=== PATIENT | male | born 1955 | race Caucasian/White ===

== ENCOUNTER → 2018-05-05 23:25 | Outpatient (CLI) | payer BC, SELFPAY | PROVIDERS: Family Provider Internal Medicine; PCP Internal Medicine; Visit Provider Internal Medicine | DX: G47.10 Hypersomnia, unspecified (principal); R06.83 Snoring; E66.9 Obesity, unspecified; I10 Essential (primary) hypertension | CPT/HCPCS: 95811 ==

== ENCOUNTER → 2018-05-05 | Outpatient (CLI) | payer BC, SELFPAY | END | disposition home or self-care (01) | LOC: SL 21:28 | PROVIDERS: Family Provider Internal Medicine; PCP Internal Medicine; Visit Provider Psychiatry & Neurology Neurology | DX: Z00.00 Encounter for general adult medical examination without abnormal findings (principal) ==

== ENCOUNTER 2019-10-18 15:00 | Outpatient (RCR) | payer BC, SELFPAY ==
--- NOTE | 2019-09-18 12:20 | HP.PTEVAL_ITS ---
Patient's Visit Information DANN ANNE is a 64 year old M referred to Physical Therapy by Anjum Mcnamara DO with a diagnosis of R TKA. Date of Evaluation: 09/12/19 Physical Therapist: Hunter Thomas DPT - Visit Plan Frequency: 3x /Week Duration: 6 Weeks Plan: Start with ROM, initiation of isometric strengthening. Progressing to functional strengthening. Initially focus on ROM and pain control. Progress as tolerated. - Subjective Findings: Pt. is here today for his initial evaluation wtih diagnosis of R TKA. DOS: 09/11/18. Pt. reports overall doing well. No N/T, no dizziness, no difficulty breathing, no calf pain. Pt. arrives with FWW, but reports that he wants to progress away from this KRISH. Pt. has been HEP compliant to date. Pt. works in [employer], where he has to stand and walk most of day. Pt. hopeful to get back to work KRISH. Pt. reports no pain with exercises, discomftor with knee flexion. Pt. is to wear bandage unit October 02. Has negative pressure bandage on. No fever noted. Pt. is hopeful to get back to all recreational and work activities without limitaitons. - Pain R knee Pain Intensity (Out of 10): 2 Pain Intensity Range: 1, 6 - Objective POSTURE: Pt. has equal wt. shift in stance. Pt. lacks TKE on RLE. PALPATION: PT. has slight tenderness around knee, no calf pain. Negative howmans sign. NEURO: Normal throughout. ROM: R knee 0-7-95deg. Tight HS and tight Hip flexors bilat. L knee 0-0-128deg. MMT: LLE 5/5 throughout. RLE- ankle 5/5; knee 4/5 throughout; hip- 4/5 throughout. GAIT: Pt. ambulates with FWW with good pattern, lacks TKE, but otherwise is doing well. STAIRS: step to pattern with BHR to complete. - Goals Goal 1:: STG: PT. to sleep throughout the night without increase in symptoms. Goal Time Frame: 2-4 Weeks Goal 2:: LTG: Pt. to be I with HEP. Goal Time Frame: 4-6 Weeks Goal 3:: STG: Pt. to have increased R knee ROM to 0-0-120deg. Goal Time Frame: 2-4 Weeks Goal 4:: LTG: Pt. to have increased strength to 4+/5 throughout RLE. Goal Time Frame: 4-6 Weeks Goal 5:: STG: Pt. to ambulate community level distances with normal pattern with LRD. Goal Time Frame: 2-4 Weeks Goal 6:: LTG: Pt. to ambulate with normal pattern without AD unlimited distances. Goal Time Frame: 4-6 Weeks - Rehabilitation Potential Physical Therapy Diagnosis: Pt. has signs and symptoms consistent with R TKA. Pt. has subsequent hypombility, pain, weakness and difficulty with gait. PT. would benefit form PT to work on above limitations progressing back to all work related activities. Rehabilitation Potential: Excellent - Anticipated Interventions Patient/Client Instruction: Educate patient on: Condition, Plan of Care, Risk Factors, Benefits of Fitness Program For the Purpose of:: To improve health and function, To foster healthy habits, To improve decision making, To facilitate caregiver knowledge, To improve self management Therapeutic Exercise to Include: Strength training, Power training, Postural training, Flexibilty training, Passive ROM, Active ROM For the Purpose of:: To decrease pain, To decrease swelling/inflammation, To increase ROM, To improve nutrient delivery to tissue, To increase oxygenation perfusion, To improve muscle performance and motor function, To improve ability to perform ADL's, To improve gait and locomotor functions, To improve health of tissue, To decrease soft tissue restriction IF ES: Yes Cryotherapy (ice pack, ice massage): Yes For the Purpose of:: To decrease pain, To decrease swelling/inflammation, To increase ROM Thank you for the opportunity to evaluate your patient. For Medicare and Medicare HMO plans, please review the plan of care and approve it. It will need to be FAXED BACK to us at [phone] for Medicare purposes. For Medicare only, by signing this I certify the plan of care. Please let me know if there are questions or concerns regarding this plan of care. Physician Signature: Date:
--- NOTE | 2019-09-28 14:13 | HP.PTREVAL_ITS ---
Anjum Mcnamara, , It has been my pleasure to treat DANN ANNE over the last 7 visits for R TKA. Please see the progress note below for an update on the physical therapy plan of care! Subjective: Pt. reports he is doing well. Pt. reprots 1/10 pain with walking, no pain at rest. Pt. continues to compliant with all exercises and is increase wa lking as tolerated. Objective/Function: ROM: PROM- 0-0-122deg, AROM: 0-0-120deg. PT. had 4+/5 strength throughout BLEs. Pt. is tolerated all exercises well. Pt. is negotiating steps with reciprocal pattern without issues, use of B HR. Pt. walks without AD with good pattern, occassional antalgic motions. Pt. to see physician next week. No pain post PT this date. Plan Plan: Start with ROM, initiation of isometric strengthening. Progressing to functional strengthening. Initially focus on ROM and pain control. Progress as tolerated. Goals Goal 1:: STG: PT. to sleep throughout the night without increase in symptoms. Goal Time Frame: 2-4 Weeks Goal 2:: LTG: Pt. to be I with HEP. Goal Time Frame: 4-6 Weeks Goal 3:: STG: Pt. to have increased R knee ROM to 0-0-120deg. Goal Time Frame: 2-4 Weeks Goal 4:: LTG: Pt. to have increased strength to 4+/5 throughout RLE. Goal Time Frame: 4-6 Weeks Goal 5:: STG: Pt. to ambulate community level distances with normal pattern with LRD. Goal Time Frame: 2-4 Weeks Goal 6:: LTG: Pt. to ambulate with normal pattern without AD unlimited distances. Goal Time Frame: 4-6 Weeks Anticipated Interventions Patient/Client Instruction: Educate patient on: Condition, Plan of Care, Risk Factors, Benefits of Fitness Program For the Purpose of:: To improve health and function, To foster healthy habits, To improve decision making, To facilitate caregiver knowledge, To improve self management Therapeutic Exercise to Include: Strength training, Power training, Postural training, Flexibilty training, Passive ROM, Active ROM For the Purpose of:: To decrease pain, To decrease swelling/inflammation, To increase ROM, To improve nutrient delivery to tissue, To increase oxygenation perfusion, To improve muscle performance and motor function, To improve ability to perform ADL's, To improve gait and locomotor functions, To improve health of tissue, To decrease soft tissue restriction IF ES: Yes Cryotherapy (ice pack, ice massage): Yes For the Purpose of:: To decrease pain, To decrease swelling/inflammation, To increase ROM Please do not hesitate to contact me at [phone] by phone or if you have questions or concerns regarding this new plan of care! Sincerely, NILESH GoldmanT
--- NOTE | 2020-03-10 16:45 | HP.PT.NRP ---
DANN ANNE was seen in my office for initial evaluation on 09/12/19. The following Plan of Care was established for this patient: Initial Frequency: 3x /Week Initial Duration: 6 Weeks Patient/Client Instruction: Educate patient on: Condition, Plan of Care, Risk Factors, Benefits of Fitness Program For the Purpose of:: To improve health and function, To foster healthy habits, To improve decision making, To facilitate caregiver knowledge, To improve self management Therapeutic Exercise to Include: Strength training, Power training, Postural training, Flexibilty training, Passive ROM, Active ROM For the Purpose of:: To decrease pain, To decrease swelling/inflammation, To increase ROM, To improve nutrient delivery to tissue, To increase oxygenation perfusion, To improve muscle performance and motor function, To improve ability to perform ADL's, To improve gait and locomotor functions, To improve health of tissue, To decrease soft tissue restriction IF ES: Yes Cryotherapy (ice pack, ice massage): Yes For the Purpose of:: To decrease pain, To decrease swelling/inflammation, To increase ROM This patient was last seen in our office 10/18/19. Pertinent comments regarding their Physical therapy will appear below: Pt. was treated for his knee replacement. Pt. did very well with PT .Pt. had good ROM and strength at our last visit. He was to trial on own and follow up with PT if needed. Pt. has not been seen in several months and will be DC from PT at this point in time. At this point I will be discontinuing this patient from physical therapy. I would be happy to see this patient again in the future if found appropriate by the physician. Thank you! Hunter Thomas DPT
== END 2019-10-18 19:00 | disposition home or self-care (01) ==
LOC: PT 15:00
PROVIDERS: Family Provider Internal Medicine; PCP Internal Medicine; Referring Provider Orthopaedic Surgery; Visit Provider Orthopaedic Surgery
DX: M17.11 Unilateral primary osteoarthritis, right knee (principal); M11.861 Other specified crystal arthropathies, right knee
CPT/HCPCS: 97110; 97161; 97164

== ENCOUNTER 2020-10-07 10:08 | Outpatient (RCR) | payer MEDICARE, SELFPAY ==
[2018-03-02 15:24] VITALS: BMI 27.3
[2020-10-07] MEDS: COVID-19 VACC, MRNA(PFIZER)/PF 30 MCG/0.3 ML SYRINGE IM (13:15)
[2020-10-28] MEDS: COVID-19 VACC, MRNA(PFIZER)/PF 30 MCG/0.3 ML SYRINGE IM (13:14)
== END 2021-01-06 23:59 ==
LOC: IMMUN 10:08
PROVIDERS: PCP Internal Medicine; Visit Provider Family Medicine
DX: Z23 Encounter for immunization (principal)
CPT/HCPCS: 0001A; 0002A; 91300

== ENCOUNTER → 2021-06-29 08:54 | Outpatient (CLI) | payer MEDICARE, OTHER, SELFPAY ==
--- NOTE | 2021-06-29 08:56 | EKG12_ITS ---
Test Reason : PRE-OP Blood Pressure : / mmHG Vent. Rate : 064 BPM Atrial Rate : 064 BPM P-R Int : 194 ms QRS Dur : 082 ms QT Int : 416 ms P-R-T Axes : 035 010 019 degrees QTc Int : 429 ms Normal sinus rhythm Normal ECG Confirmed by MARIA TERESA JOSHI, YAN ([id number]), publications editor STACIE KING ([id number]) on 06/30/2021 10:28:33 AM Referred By: Anjum Mcnamara Confirmed By:YAN MOREL MD
== END ==
PROVIDERS: PCP Internal Medicine; Referring Provider Orthopaedic Surgery; Visit Provider Orthopaedic Surgery
DX: Z01.810 Encounter for preprocedural cardiovascular examination (principal); G47.30 Sleep apnea, unspecified; E78.00 Pure hypercholesterolemia, unspecified
CPT/HCPCS: 93005

== ENCOUNTER 2021-08-31 12:00 | Outpatient (RCR) | payer MEDICARE, OTHER, SELFPAY ==
--- NOTE | 2021-07-16 08:34 | HP.PTEVAL ---
Patient's Visit Information DANN ANNE is a 66 year old M referred to Physical Therapy by Dr. Anjum Mcnamara DO with a diagnosis of L TKA. Date of Evaluation: 07/15/21 Physical Therapist: Hunter Thomas DPT - Visit Plan Frequency: 2-3x /Week Duration: 6 Weeks Plan: Improve Left knee ROM with focus on extension. Once tolerated begin strengthening of quads and hamstrings as well as hip musculature. - Subjective Pt presents to physical therapy with a left total knee replacement, surgery was on 07/14/21. Pt states going up and down 2 stairs to get into and out of the house is challenging along with transitioning from sit to stand causes pain in his knee. Pt reports the nerve block has begun to wear off and has felt some pain, and is taking pain meds to manage symptoms. Patient states last night he was able to sleep decently, but when changing positions there was pain in knee. Pt states he has not noticed any numbness and tingling in his left leg. Patient goals for therapy are to return to gardening and outdoor work as well as working in his garage. He has been icing as prescribed. Bandaged removed today, [employer] bandage still in place. Pt. is hopeful to get back to all recreational activities without limtations. - Pain Left Knee Pain Intensity (Out of 10): 7 Pain Intensity Range: 3, 9 - Objective AROM Left knee flexion 0-11-100; Right knee 2-0-116. Girth: R 5cm below joint line: 43, joint line: 41, 5cm above joint line:49; L 5cm below joint line: 46, joint line: 50, 5cm above joint line:53. OBSERVATION: knee has no signs of infection, skin slightly warm to touch which is expected. Swelling noted surrounding full joint, and slight bruising along medial side of L knee. Negative homans. GAIT: Pt. ambulates well with FWW. PT. has slight lack of TKE during L stance phase, but good step through pattern noted. Pt. is able to rise of chair without issues. - Balance/Special Test Scores Lower Extremity Functional Score: 15 TUG Test Time Seconds: 29.9 WOMAC Total Score: 41 WOMAC Percentatge: 57.3000 - Goals Goal 1:: Pt will be independent with HEP. Goal Time Frame: 4-6 Weeks Goal 2:: STG: Pt will ambulate using single point cane to improve gait speed and QOL. Goal Time Frame: 2-4 Weeks Goal 3:: LTG: Pt will improve L knee ROM to 0-0-120. Goal Time Frame: 6-8 Weeks Goal 4:: STG: Pt will improve LEFS disability to < 45% Goal Time Frame: 2-4 Weeks Goal 5:: LTG: Pt will be return to daily recreational activities such as working in his garage with 0-2/10 pain. Goal Time Frame: 12-16 Weeks - Rehabilitation Potential Physical Therapy Diagnosis: limited knee ROM, increased swelling, knee pain Rehabilitation Potential: Good - Anticipated Interventions Patient/Client Instruction: Educate patient on: Condition, Plan of Care, Risk Factors, Benefits of Fitness Program For the Purpose of:: To decrease pain, To decrease swelling/inflammation, To increase ROM, To improve muscle performance and motor function, To improve ability to perform ADL's, To increase tolerance to activity/condition/position, To improve performance and independence with ADL's, To improve ability of physical actions for home/community/work/leisure, To improve gait and locomotor functions, To improve health of tissue, To improve endurance, To improve balance, To improve health and function Therapeutic Exercise to Include: Strength training, Endurance training, Flexibilty training, Passive ROM, Active ROM For the Purpose of:: To decrease pain, To decrease swelling/inflammation, To increase ROM, To improve muscle performance and motor function, To improve ability to perform ADL's, To increase tolerance to activity/condition/position, To improve performance and independence with ADL's, To improve ability of physical actions for home/community/work/leisure, To improve health of tissue, To increase flexibility/ROM, To improve health and function, To foster healthy habits, To improve self management, To improve ability to perform tasks related to life management Other electric stimulation: Yes Cryotherapy (ice pack, ice massage): Yes For the Purpose of:: To decrease pain, To decrease swelling/inflammation, To increase ROM Thank you for the opportunity to evaluate your patient. For Medicare and Medicare HMO plans, please review the plan of care and approve it. It will need to be FAXED BACK to us at [phone] for Medicare purposes. For Medicare only, by signing this I certify the plan of care. Please let me know if there are questions or concerns regarding this plan of care. Physician Signature: Date:
--- NOTE | 2021-09-04 08:23 | HP.PTREVAL ---
Dr. Anjum Mcnamara, DO, It has been my pleasure to treat DANN ANNE over the last 18 visits for L TKA (07/14/21). Please see the progress note below for an update on the physical therapy plan of care! Subjective: Pt. reports being 90% better overall. Pt. reports no issues. He pleased with his progress. Pt. reports no pain currently. He reports walking without issues. No longer using an AD. 0/10 pain currently. Objective/Function: ROM: 0-0-120deg. Pt. has some tightness getting close to 120deg. MMT: 5/5 throughout. GAIT: He has good gait pattern. Pt. ambulates well, no AD with good step length. STAIRS: Pt. negotiates with reciprocal pattern with use of 1 HR. TU.6sec. Pt. is overall doing very well. He is back to most functional activities without limitations. He is back to all recreational activities including working in work shop without issues. Pt. to follow up with physician in 2 weeks. Plan Plan: Pt. to follow up with Physician in 2 weeks. Pt. will complete own exercises until then. After he will follow up with PT if needed. Balance/Gait/Functional tests - Balance/Special Test Scores Lower Extremity Functional Score: 80 TUG Test Time Seconds: 7.6 Tug Test: <10 sec.=free mobile WOMAC Total Score: 0 WOMAC Percentage: 100 Goals Goal 1:: Pt will be independent with HEP. Goal Time Frame: 4-6 Weeks Goal Progress: Goal Met Goal 2:: STG: Pt will ambulate using single point cane to improve gait speed and QOL. Goal Time Frame: 2-4 Weeks Goal Progress: Goal Met Goal 3:: LTG: Pt will improve L knee ROM to 0-0-120. Goal Time Frame: 6-8 Weeks Goal Progress: Goal Met Goal 4:: STG: Pt will improve LEFS disability to < 45% Goal Time Frame: 2-4 Weeks Goal Progress: Goal Met Goal 5:: LTG: Pt will be return to daily recreational activities such as working in his garage with 0-2/10 pain. Goal Time Frame: 12-16 Weeks Goal Progress: Goal Met Anticipated Interventions Patient/Client Instruction: Educate patient on: Condition, Plan of Care, Risk Factors, Benefits of Fitness Program For the Purpose of:: To decrease pain, To decrease swelling/inflammation, To increase ROM, To improve muscle performance and motor function, To improve ability to perform ADL's, To increase tolerance to activity/condition/position, To improve performance and independence with ADL's, To improve ability of physical actions for home/community/work/leisure, To improve gait and locomotor functions, To improve health of tissue, To improve endurance, To improve balance, To improve health and function Therapeutic Exercise to Include: Strength training, Endurance training, Flexibilty training, Passive ROM, Active ROM For the Purpose of:: To decrease pain, To decrease swelling/inflammation, To increase ROM, To improve muscle performance and motor function, To improve ability to perform ADL's, To increase tolerance to activity/condition/position, To improve performance and independence with ADL's, To improve ability of physical actions for home/community/work/leisure, To improve health of tissue, To increase flexibility/ROM, To improve health and function, To foster healthy habits, To improve self management, To improve ability to perform tasks related to life management Other electric stimulation: Yes Cryotherapy (ice pack, ice massage): Yes For the Purpose of:: To decrease pain, To decrease swelling/inflammation, To increase ROM Please do not hesitate to contact me at [phone] by phone or if you have questions or concerns regarding this new plan of care! Sincerely, Hunter Thomas DPT
== END 2021-08-31 19:00 | disposition home or self-care (01) ==
LOC: PT 12:00
PROVIDERS: PCP Internal Medicine; Referring Provider Orthopaedic Surgery; Visit Provider Orthopaedic Surgery
DX: M17.12 Unilateral primary osteoarthritis, left knee (principal); M11.862 Other specified crystal arthropathies, left knee
CPT/HCPCS: 97110; 97161; 97164

== ENCOUNTER 2023-04-22 22:09 | Emergency (ER) | payer MEDICARE, OTHER, SELFPAY ==
[2023-04-22 22:10] VITALS: BP 143/95; PULSE 91; RESP 14; TEMP 36.5; O2SAT 97; BMI 37.8
[2023-04-22 22:14] VITALS: BP 143/95; PULSE 91; RESP 14; TEMP 36.5; O2SAT 97
--- NOTE | 2023-04-22 22:29 | CT_ITS ---
INDICATION: syncope EXAMINATION: CT BRAIN - CT Head or Brain W/O Contrast Injection TECHNIQUE: Multiple axial images were obtained of the head without intravenous contrast. A radiation dose optimization technique was used for this scan. IV Contrast dosage and agent: None. COMPARISON: None FINDINGS: BRAIN PARENCHYMA: No intra- or extra-axial hemorrhage. No evidence of acute infarct. No intracranial mass or mass effect. Mild periventricular and subcortical white matter hypodense chronic small vessel white matter ischemic change. There is preservation of the hicks/white matter interface. Posterior fossa structures are unremarkable. Vertebral and carotid atherosclerosis. CSF SPACES: Mild global cerebral volume loss compatible with age. No hydrocephalus. Basal cisterns are patent. CALVARIUM, SKULL BASE, PARANASAL SINUSES AND MASTOID AIR CELLS: No acute osseous finding. Paransasal sinuses are clear. Mastoid air cells are clear. ORBITS: Both globes, extraocular muscles, optic nerves and retrobulbar fat appear unremarkable. ASPECTS Score for Acute Strokes: 10 CT/Brain/Head without Contrast IMPRESSION: No CT evidence of acute intracranial hemorrhage or injury. Electronically Signed: Edis Weiss MD at 23:06 EDT Reading Location ID and State: [facility] / [place] Tel , Service support ,
--- NOTE | 2023-04-22 22:29 | EKG12_ITS ---
Test Reason : DYSRHYTHMIA Blood Pressure : / mmHG Vent. Rate : 089 BPM Atrial Rate : 089 BPM P-R Int : 240 ms QRS Dur : 086 ms QT Int : 382 ms P-R-T Axes : 000 015 023 degrees QTc Int : 464 ms Sinus rhythm with 1st degree A-V block Otherwise normal ECG Confirmed by ELIZABETH JOSHI, KARON ([id number]), purchase request editor INDIRA HAGAN ([id number]) on 04/26/2023 10:30:53 AM Referred By: Confirmed By:CRISTI JOHNSON MD
[2023-04-22 22:35] VITALS: BP 124/85; BP 132/83; BP 141/92; PULSE 85; PULSE 90; PULSE 95
[2023-04-22 22:37] LABS: Absolute Lymphocyte Count 2.59 X10^3/uL (0.83-4.51); Absolute Neutrophil Count 2.4 X10^3/uL (2.0-7.7); Basophil# 0.04 X10^3/uL; Basophil% 0.7 % (0-1); Eosinophil# 0.16 X10^3/uL; Eosinophils% 2.8 % (0-5); Hematocrit 41.6 % (40-54); Hemoglobin 13.9 g/dL (13.0-16.5); Lymphocyte # 2.59 X10^3/ul (0.83-4.51); Lymphocyte % 44.7 % (19-41); Mean Corp Hgb Conc 33.4 g/dL (32-36); Mean Corpuscular Hgb 27.9 pg (27.0-32.0); Mean Corpuscular Volume 83.4 fL (80-94); Mean Platelet Vol. 9.6 fl (6.2-12.0); Monocyte# 0.58 X10^3/uL; NRBC Flagged by Analyzer 0 % (0-5); Neutrophil # 2.41 X10^3/uL (2.7-7.7); Neutrophil % 41.5 % (47-70); Platelet Count 220 K/mm3 (150-450); RBC Distribution Width SD 44.8 fl (35.1-43.9); Red Blood Count 4.99 M/mm3 (4.6-6.2); White Blood Count 5.8 K/mm3 (4.4-11.0)
[2023-04-22 22:56] LABS: Anion Gap 7 (5-15); BUN 20 mg/dL (7-18); BUN/Creat Ratio 19.6 RATIO (10-20); Calcium,Total 8.8 mg/dL (8.5-10.1); Chloride 106 mmol/L (98-107); Creatinine, Serum 1.02 mg/dL (0.70-1.30); EST Glomerular Filtration Rate 77 mL/min (>60); Est Glom Filt Rate - Afr Amer 93 mL/min (>60); Estimated Creatinine Clearance 79.42 ml/min; Glucose 134 mg/dL (74-106); Magnesium 2.2 mg/dL (1.6-2.6); Potassium 3.2 mmol/L (3.5-5.1); Sodium Level 139 mmol/L (136-145)
[2023-04-22] MEDS: 0.9% Normal Saline (1000mL) 1,000 ML 999 ML IV (23:20)
--- NOTE | 2023-04-22 23:40 | EX.ED.DYSGE1 ---
HPI History of Present Illness Chief Complaint: Syncope Informant: patient and spouse/S.O. Narrative Narrative: Patient is a 67-year-old male with past medical history of hypertension and hyperlipidemia. He states that this evening he stood up from his chair and the next he knows he was waking up on the floor. He states that he did strike his head when he fell. He denies any headache change in vision or history of bleeding disorder or blood thinner use. He denies any palpitations or chest discomfort prior to his syncopal event. He states he feels normal at this time. However with the event occurring and head trauma he was brought in for evaluation. [facility] Home Medications atorvastatin 40 mg tablet 60 mg PO ONCE 03/02/18 [History Last Taken Unknown] carvedilol 6.25 mg tablet 6.25 mg PO ONCE 03/02/18 [History Last Taken Unknown] lisinopril 20 mg tablet 20 mg PO ONCE 03/02/18 [History Last Taken Unknown] paroxetine HCl 25 mg tablet,extended release 24 hr 25 mg PO ONCE 03/02/18 [History Last Taken Unknown] Allergy/AdvReac Type Severity Reaction Status Date / Time No Known Allergies Allergy Verified 04/22/23 22:09 Social History (System 05/17/19 @ 15:24 by Karen Vazquez) Smoking Status: Never smoker ROS ROS ED Constitutional Constitutional ED: Denies chills or fever(s) Eyes Eyes: Denies change in vision ENT ENT ED: Denies sore throat Cardiovascular Cardiovascular: Reports other Details: Positive syncope ; Denies chest pain, palpitations or racing heartbeat Respiratory/Chest Respiratory/Chest: Denies cough or dyspnea Gastrointestinal Gastrointestinal: Denies abdominal pain, diarrhea, nausea or vomiting Genitourinary Genitourinary ED: Denies dysuria Musculoskeletal Musculoskeletal: Denies back pain, myalgias or neck pain Integumentary Reports Abrasions; Denies rash Neurologic Neurologic: Denies headache(s) Hematologic/Lymphatic Hematologic/Lymphatic: Denies easy bleeding or easy bruising EXAM Physical Exam Const Vital Signs: 04/22/23 22:10 04/22/23 22:14 04/22/23 22:35 Temperature 97.7 F L 97.7 F L Temperature Source Temporal Temporal Pulse Rate 91 91 Pulse Rate [Lying] 85 Pulse Rate [Sitting (for 1 minute prior to obtaining)] 90 Pulse Rate [Standing (for 1 minute prior to obtaining)] 95 Respiratory Rate 14 14 Blood Pressure 143/95 H 143/95 H Blood Pressure [Lying] 132/83 H Blood Pressure [Sitting (for 1 minute prior to obtaining)] 124/85 H Blood Pressure [Standing (for 1 minute prior to obtaining)] 141/92 H Blood Pressure Mean 111 111 Blood Pressure Mean [Lying] 99 Blood Pressure Mean [Sitting (for 1 minute prior to obtaining)] 98 Blood Pressure Mean [Standing (for 1 minute prior to obtaining)] 108 Pulse Ox 97 97 Oxygen Delivery Method Room Air Room Air 04/23/23 00:12 Temperature Temperature Source Pulse Rate 83 Pulse Rate [Lying] Pulse Rate [Sitting (for 1 minute prior to obtaining)] Pulse Rate [Standing (for 1 minute prior to obtaining)] Respiratory Rate 20 H Blood Pressure 120/71 Blood Pressure [Lying] Blood Pressure [Sitting (for 1 minute prior to obtaining)] Blood Pressure [Standing (for 1 minute prior to obtaining)] Blood Pressure Mean Blood Pressure Mean [Lying] Blood Pressure Mean [Sitting (for 1 minute prior to obtaining)] Blood Pressure Mean [Standing (for 1 minute prior to obtaining)] Pulse Ox 99 Oxygen Delivery Method Positive well nourished and well developed General Appearance ED: well developed HEENT Reports TM's clear HEENT Narrative: Patient has superficial abrasion underneath the right eye and to the right cheek consistent with head injury reported but no signs of depressed or basilar skull fracture No septal hematoma noted No tongue or cheek biting noted Tympanic Membrane ED: Yes TM's clear Eyes PERRL and EOMs intact bilaterally Eyes Narrative: No hyphema Neck supple Neck Narrative: No bony deformity or step-off of the cervical spine no midline pain on palpation Patient is able to move his neck in all directions without pain Chest Wall palpation of chest normal Chest Narrative: No bony deformity or crepitance noted Resp normal respiratory effort and clear to auscultation bilaterally Cardio regular rate and regular rhythm Rate: other Other Details: Radial and carotid pulses are equal and symmetric GI normal to inspection, nondistended, normoactive bowel sounds, non-tender, non-distended and no masses Auscultation: normoactive bowel sounds Palpation: soft Back/Spine Back/Spine Narrative: No bony deformity or step-off of the thoracic or lumbar spine no midline pain on palpation Extremity normal to inspection Neuro oriented x3, CN's II-XII intact bilaterally and no sensory deficits noted Neuro Narrative: Cranial nerves II through XII are grossly intact no focal neurologic deficit. No pronator drift no dysmetria no truncal ataxia. NIH stroke scale score of 0 Sensorium / Orientation: alert Psych mental status grossly normal Skin Skin Narrative: Superficial abrasions as documented above MDM MDM MDM Narrative Medical decision making narrative: Patient presented to the ER awake and alert with normal neurologic exam. He reported a syncopal event after standing up. This is most consistent with orthostatic syncope. However with head trauma there is also concern for skull fracture versus subdural epidural hematoma versus cardiac dysrhythmia acute blood loss anemia or acute kidney injury or electrolyte abnormality as a cause of his symptoms. Secondary to this a basic work-up was obtained. Labs revealed no clinically significant findings. Imaging study showed no sign of trauma. Of note the patient did admit to recurrent bouts of orthostatic syncope when he was younger. Orthostatic vitals were obtained in the ER which were technically negative the patient was hydrated 1 L of fluid and can stand and ambulate without difficulty. Therefore at this time with no signs of underlying trauma no cardiac dysrhythmia or signs of acute kidney injury or electrolyte disturbance patient can be discharged home that he can ambulate with a steady gait. History & Record Review Discussion w/independent historian: Patient and Significant other Lab Data Attestation: I reviewed the patient's lab results. Labs: Laboratory Results - last 24 hr 04/22/23 22:10 WBC 5.8 RBC 4.99 Hgb 13.9 Hct 41.6 MCV 83.4 MCH 27.9 MCHC 33.4 RDW Std Deviation 44.8 H RDW Coeff of Shan 15.0 H Plt Count 220 MPV 9.6 Immature Gran % (Auto) 0.300 Neut % (Auto) 41.5 L Lymph % (Auto) 44.7 H [place] % (Auto) 10.0 Eos % (Auto) 2.8 Baso % (Auto) 0.7 Absolute Neuts (auto) 2.4 Absolute Lymphs (auto) 2.59 Nucleated RBC % 0 Sodium 139 Potassium 3.2 L Chloride 106 Carbon Dioxide 26.0 Anion Gap 7 BUN 20 H Creatinine 1.02 Estim Creat Clear Calc 79.42 Est GFR (MDRD) Af Amer 93 Est GFR (MDRD) Non-Af 77 BUN/Creatinine Ratio 19.6 Glucose 134 H Calcium 8.8 Magnesium 2.2 Radiography Diagnostic Testing: Clinical Impression(s) from Imaging Studies Brain CT 04/22/23 22:29 IMPRESSION: No CT evidence of acute intracranial hemorrhage or injury. Electronically Signed: Edis Weiss MD at 23:06 EDT Reading Location ID and State: [facility] / [place] Tel , Service support , Discharge Plan Triage Chief Complaint: Syncope ED Provider: German Mckeon Dx/Rx/DC Orders Clinical Impression: Syncope, Hyperlipidemia, Hypertension Instructions: Causes of Syncope Prescriptions: No Action paroxetine HCl 25 mg tablet extended release 24 hr 25 mg PO ONCE lisinopril 20 mg tablet 20 mg PO ONCE carvedilol 6.25 mg tablet 6.25 mg PO ONCE atorvastatin 40 mg tablet 60 mg PO ONCE Primary Care Provider: Valarie Wood Referrals: Valarie Wood MD [Primary Care Provider] - Disposition Disposition: Home, Self Care Discharge Date/Time: 04/23/23 00:15
[2023-04-23 00:12] VITALS: BP 120/71; PULSE 83; RESP 20; O2SAT 99
== END 2023-04-23 00:15 | disposition home or self-care (01) ==
PROVIDERS: Emergency Provider Emergency Medicine; PCP Internal Medicine; Visit Provider Emergency Medicine
DX: R55 Syncope and collapse (principal); E78.5 Hyperlipidemia, unspecified; I10 Essential (primary) hypertension; Z79.899 Other long term (current) drug therapy
CPT/HCPCS: 70450; 80048; 83735; 85025; 93005; 96360; 99285; J7030; A4216

== ENCOUNTER 2024-11-01 09:00 | Outpatient (RCR) | payer MEDICARE, OTHER, SELFPAY ==
--- NOTE | 2024-10-05 09:01 | HP.PTEVAL ---
Patient's Visit Information Visit Information Visit Information: DANN ANNE is a 69 year old M referred to Physical Therapy by ELAN Melendez with a diagnosis of LUMBAR SPONDYLOSIS ,CHRONIC BILATERAL LOW BACK PAIN W/O SCIATICA. Date of Evaluation: 10/05/24 Physical Therapist: Alberto Soliman, PT, Cert MDT, OCS Visit Plan Frequency: 2x /Week Duration: 4 Weeks Plan: PT INTERVENTIONS POSTURAL EX'S ,DLS ,LE FLEXABILITY ,ACTIVITY MODIFICATION AND LE FLEXABILITY Subjective Subjective: This 69 y/o male presents to physical therapy for lumbar pain. Patient has had pain ~ 1 year. Symptoms have been gradual but worsen with hauling firewood. Seen pain management recommended PT and had x-rays .No medication. Patient has pain symmetrical left > right side . Aggravating factors walking on uneven surfaces ,bending and lifting . Alleviating factors sitting. Coughing/sneezing-. Bowel/bladder-. Denies paresthesia/tingling-. Sleeping oaky . Patient pain affects QOL and function/job demands. Patient goals to decrease pain. SOCIAL: VOCATION: retired Objective Objective: POSTURE: mild posture GAIT: reciprocal pattern mild forward posture PALAPTION: unremarkable NEURO: denies paresthesia/tingling ,reflexes L3-4,L4-5,L5-S1 1/3 FLEXABILITY: hamstrings min loss MMT: quads/hams 4/5 ,hip flexion 4/5 ,ankle 4/5 LUMBAR ROM: flexion min loss ,extension mod loss ,side glides min/mod loss Special Tests L/S Slump test left side: Negative L/S Slump test right side: Negative L/S Left Straight Leg Raise: Negative L/S Right Straight Leg Raise: Negative Lumbar Standing: Flexion - Mechanical Response: No effect Lumbar Standing: Flexion - Symptoms During Testing: Increases Lumbar Standing: Flexion - Symptoms After Testing: No worse Lumbar Standing: Extension - Mechanical Response: No effect Lumbar Standing: Extension - Symptoms During Testing: Increases Lumbar Standing: Extension - Symptoms After Testing: No worse Lumbar Standing: Right Side Glides - Mechanical Response: No effect Lumbar Standing: Right Side [place] - Symptoms During Testing: No effect Lumbar Standing: Right Side [place] - Symptoms After Testing: No effect Lumbar Standing: Left Side [place] - Mechanical Response: No effect Lumbar Standing: Left Side [place] - Symptoms During Testing: No effect Lumbar Standing: Left Side [place] - Symptoms After Testing: No effect Lumbar Lying: Flexion - Mechanical Response: No effect Lumbar Lying: Flexion - Symptoms During Testing: Increases Lumbar Lying: Flexion - Symptoms After Testing: No worse Balance/Special Test Scores Oswestry Low Back Score: 21 Goals Goal 1:: Patient to be I with HEP for back Goal Time Frame: 4-6 Weeks Goal 2:: Patient to improve lumbar ROM for function of recovery to put on shoes Goal Time Frame: 4-6 Weeks Goal 3:: Patient to improve back oswestry score by 5 points to improve QOL Goal Time Frame: 4-6 Weeks Goal 4:: Patient to demonstrate 50% improvement with less pain and improved function Goal Time Frame: 4-6 Weeks Rehabilitation Potential Physical Therapy Diagnosis: This patient has lumbar pain symmetrical with pain with positioning worse with walking on uneven surfaces and lifting thus patient will benefit from skilled PT Rehabilitation Potential: Good Anticipated Interventions Patient/Client Instruction: Educate patient on: Condition and Plan of Care For the Purpose of:: To decrease pain, To increase ROM, To improve muscle performance and motor function, To improve ability to perform ADL's, To increase tolerance to activity/condition/position, To improve ability of physical actions for home/community/work/leisure, To improve health of tissue, To decrease soft tissue restriction, To increase flexibility/ROM and To reduce risk of recurrence Therapeutic Exercise to Include: Strength training, Endurance training, Body mechanics, Postural training, Flexibilty training, Active ROM and Dynamic Lumbar Stabilization For the Purpose of:: To decrease pain, To increase ROM, To improve muscle performance and motor function, To increase tolerance to activity/condition/position, To improve ability of physical actions for home/community/work/leisure, To improve health of tissue, To decrease soft tissue restriction, To increase flexibility/ROM and To reduce risk of recurrence TENS: Yes IF ES: Yes Cryotherapy (ice pack, ice massage): Yes Thermo therapy (hot pack): Yes Ultrasound (thermal/non thermal): Yes For the Purpose of:: To decrease pain, To increase ROM, To improve nutrient delivery to tissue and To increase oxygenation perfusion Text: Thank you for the opportunity to evaluate your patient. For Medicare and Medicare HMO plans, please review the plan of care and approve it. It will need to be FAXED BACK to us at [phone] for Medicare purposes. For Medicare only, by signing this I certify the plan of care. Please let me know if there are questions or concerns regarding this plan of care. Physician Signature: Date:
--- NOTE | 2025-04-08 16:41 | HP.PTDCSUM ---
Discharge Summary D/C summary: It has been my pleasure to treat DANN ANNE referred by KINGA MelendezC, with the diagnosis of LUMBAR SPONDYLOSIS ,CHRONIC BILATERAL LOW BACK PAIN W/O SCIATICA for a total of 9 visit(s). Discharge Date: Please see the following information for a summary of their discharge status. Subjective Subjective: Doing well .. Overall Improvement % Improvement: 75 Objective Objective/Function: POSTURE: mild posture GAIT: reciprocal pattern mild forward posture PALAPTION: unremarkable NEURO: denies paresthesia/tingling ,reflexes L3-4,L4-5,L5-S1 1/3 FLEXABILITY: hamstrings min loss MMT: quads/hams 4/5 ,hip flexion 4/5 ,ankle 4/5 LUMBAR ROM: flexion wfl ,extension min/mod loss ,side glides min loss Goals Goal 1:: Patient to be I with HEP for back Goal Progress: Goal Met Goal 2:: Patient to improve lumbar ROM for function of recovery to put on shoes Goal Progress: Goal Met Goal 3:: Patient to improve back oswestry score by 5 points to improve QOL Goal Progress: Goal Met Goal 4:: Patient to demonstrate 50% improvement with less pain and improved function Goal Progress: Goal Met Plan Plan: return in 2weeks PT INTERVENTIONS POSTURAL EX'S ,DLS ,LE FLEXABILITY ,ACTIVITY MODIFICATION AND LE FLEXABILITY D/C Information d/c sentence: If there are questions or concerns regarding this patient's physical therapy, please feel free to call me at [phone]. Thank you for the referral of this patient. Sincerely, Alberto Soliman, PT, Cert MDT, OCS Balance/Gait/Functional tests Balance/Special Test Scores Oswestry Low Back Score: 2 Improvement % Improvement: 75
== END 2024-11-01 19:00 | disposition home or self-care (01) ==
LOC: PT 09:00
PROVIDERS: PCP Internal Medicine; Referring Provider Nurse Practitioner Family; Visit Provider Nurse Practitioner Family
DX: M47.816 Spondylosis without myelopathy or radiculopathy, lumbar region (principal); M54.50 Low back pain, unspecified; G89.29 Other chronic pain
CPT/HCPCS: 97110; 97162; 97530